=== PATIENT | male | born 1955 | race Caucasian/White ===

== ENCOUNTER 2017-10-09 08:33 | Emergency (ER) | payer MEDICARE, MEDICAID ==
[~2017-10-09] VITALS: Ht 172.7 cm; Wt 57.0 kg
[~2017-10-09 08:33] MED LIST: ALBU8.5H8 IH; ALBU8HFA PO; AZIT250T PO; EMOL78CR TOP; METH500T PO; NAPAOS PO; NO HOME MEDS
[2017-10-09] MEDS ORDERED: HYDROcodone/acetaminophen 10/325mg tab PO ONE (09:40)
[2017-10-09 09:44] VITALS: BP 102/56
[2017-10-09] MEDS ORDERED: HYDR-569 PO (10:01)
[2017-10-09] MEDS ORDERED: LIDOcaine 1.5% w/epinephrine 1:200,000 5ml ampul IJ ONE (10:05)
== END 2017-10-09 11:02 | disposition home or self-care (01) ==
LOC: ER 08:33
DX: S01.112A Laceration without foreign body of left eyelid and periocular area, initial encounter (principal); S40.012A Contusion of left shoulder, initial encounter; S09.90XA Unspecified injury of head, initial encounter; I25.10 Atherosclerotic heart disease of native coronary artery without angina pectoris; J44.9 Chronic obstructive pulmonary disease, unspecified; G89.29 Other chronic pain; F17.200 Nicotine dependence, unspecified, uncomplicated; Z59.0 Homelessness; Z79.899 Other long term (current) drug therapy; Z88.8 Allergy status to other drugs, medicaments and biological substances; W01.0XXA Fall on same level from slipping, tripping and stumbling without subsequent striking against object, initial encounter; Y93.89 Activity, other specified; Y92.89 Other specified places as the place of occurrence of the external cause; Y99.8 Other external cause status
CPT/HCPCS: 12011; 70450; 73030; 93005; 99284; J3490

== ENCOUNTER 2017-10-28 13:05 | Emergency (ER) | payer MEDICARE, MEDICAID ==
[~2017-10-28] VITALS: Ht 175.3 cm; Wt 54.0 kg
[~2017-10-28 13:05] MED LIST changes: +HYDR-569 PO
[2017-10-28 13:26] VITALS: BP 118/76
== END 2017-10-28 16:00 | disposition home or self-care (01) ==
LOC: ER 13:06
DX: S42.302A Unspecified fracture of shaft of humerus, left arm, initial encounter for closed fracture (principal); I25.10 Atherosclerotic heart disease of native coronary artery without angina pectoris; J44.9 Chronic obstructive pulmonary disease, unspecified; M19.90 Unspecified osteoarthritis, unspecified site; Z88.8 Allergy status to other drugs, medicaments and biological substances; Z60.2 Problems related to living alone; Z59.0 Homelessness; Z79.899 Other long term (current) drug therapy; W18.30XA Fall on same level, unspecified, initial encounter; Y93.89 Activity, other specified; Y92.89 Other specified places as the place of occurrence of the external cause; Y99.8 Other external cause status
CPT/HCPCS: 29105; 73080; 73120; 99284; A4565; A6449

== ENCOUNTER 2017-11-11 14:14 | Outpatient (CLI) | payer MEDICARE, MEDICAID ==
[2017-11-11 14:24] VITALS: BP 113/66
== END 2017-11-11 15:19 | disposition home or self-care (01) ==
LOC: ORTHO 14:14
PROVIDERS: ATTEND Nurse Practitioner Family
DX: S52.132A Displaced fracture of neck of left radius, initial encounter for closed fracture (principal); J43.9 Emphysema, unspecified; I25.10 Atherosclerotic heart disease of native coronary artery without angina pectoris; F32.9 Major depressive disorder, single episode, unspecified; F17.210 Nicotine dependence, cigarettes, uncomplicated; F20.9 Schizophrenia, unspecified; G89.29 Other chronic pain; Z88.8 Allergy status to other drugs, medicaments and biological substances; Z59.0 Homelessness; X58.XXXA Exposure to other specified factors, initial encounter; Y93.89 Activity, other specified; Y92.89 Other specified places as the place of occurrence of the external cause; Y99.8 Other external cause status
CPT/HCPCS: 73080; 99213

== ENCOUNTER 2017-11-24 09:40 | Outpatient (CLI) | payer MEDICARE, MEDICAID ==
[~2017-11-24] VITALS: Ht 175.3 cm; Wt 52.0 kg
[2017-11-24 09:42] VITALS: BP 111/74
[2017-11-24 09:53] VITALS: BP 111/74
== END 2017-11-24 10:34 | disposition home or self-care (01) ==
LOC: ORTHO 09:40
PROVIDERS: ATTEND Nurse Practitioner Family
DX: S52.135 Nondisplaced fracture of neck of left radius (principal); I25.2 Old myocardial infarction; J44.9 Chronic obstructive pulmonary disease, unspecified; M19.90 Unspecified osteoarthritis, unspecified site; F17.210 Nicotine dependence, cigarettes, uncomplicated; R73.03 Prediabetes; Z59.0 Homelessness; Z87.11 Personal history of peptic ulcer disease; X58.XXXD Exposure to other specified factors, subsequent encounter
CPT/HCPCS: 73080; 99215; A4565; A6449

== ENCOUNTER 2017-12-09 05:29 | Day surgery (SDC) | payer MEDICARE, MEDICAID ==
[2017-12-04 15:19] LABS: BASOPHILS # (AUTO) 0.1 X10'3 (0-0.2); BASOPHILS % (AUTO) 0.6 % (0-1); EOSINOPHILS # (AUTO) 0.2 X10'3 (0-0.9); EOSINOPHILS % (AUTO) 1.7 % (0-6); LYMPHOCYTES # (AUTO) 2.3 X10'3 (1.1-4.8); LYMPHOCYTES % (AUTO) 22.3 % (21-51); MEAN CORPUSCULAR HEMOGLOBIN 29.9 PG (27.0-31.0); MEAN CORPUSCULAR HGB CONC 33.4 % (33.0-36.5); MEAN CORPUSCULAR VOLUME 89.4 FL (78-98); MEAN PLATELET VOLUME 7.4 FL (7.4-10.4); MONOCYTES # (AUTO) 0.7 X10'3 (0-0.9); MONOCYTES % (AUTO) 6.5 % (2-12); NEUTROPHILS # (AUTO) 7.3 X10'3 (1.8-7.7); NEUTROPHILS % (AUTO) 68.9 % (42-75); PRE OP HEMATOCRIT 46.3 % (42.0-52.0); PRE OP HEMOGLOBIN 15.5 g/dL (14.0-17.9); PRE OP PLATELET COUNT 278 X10'3 (140-440); RED BLOOD COUNT 5.18 X10'6 (4.70-6.10); RED CELL DISTRIBUTION WIDTH 13.8 % (11.5-14.5)
[2017-12-04 15:37] LABS: ALBUMIN 3.9 G/DL (3.4-5.0); ALKALINE PHOSPHATASE 94 IU/L (46-116); BLOOD UREA NITROGEN 17 MG/DL (7-18); BUN/CREATININE RATIO 15.5 (5.4-32.0); CALCIUM 8.9 MG/DL (8.5-10.1); CHLORIDE 102 MMOL/L (99-107); PRE OP ALT 28 U/L (30-65); PRE OP ANION GAP 8 (8-16); PRE OP AST 24 U/L (10-37); PRE OP BILIRUB, TOTAL 1.6 MG/DL (0.0-1.0); PRE OP GLUCOSE 95 MG/DL (70-104); PRE OP POTASSIUM 3.8 MMOL/L (3.4-5.1); PRE OP SODIUM 140 MMOL/L (135-145); TOTAL CARBON DIOXIDE 29.7 MMOL/L (24-32); TOTAL PROTEIN 7.8 G/DL (6.4-8.2); eGFR 68 ML/MIN
[2017-12-09] VITALS (12 sets, daily range): BP systolic 101–119; BP diastolic 63–78
[~2017-12-09] VITALS: Ht 175.3 cm; Wt 53.0 kg
[~2017-12-09 05:29] MED LIST changes: -ALBU8.5H8 IH; -AZIT250T PO; -EMOL78CR TOP; -HYDR-569 PO; -METH500T PO; -NAPAOS PO; -NO HOME MEDS; +ringers solution, lacted 1,000 ML IV SCH
[2017-12-09] MEDS ORDERED: VANCOMYCIN INJ 1000 MG in NORMAL SALINE 250ml IV.SOLN IV ONE (05:30)
[2017-12-09] MEDS ORDERED: famotidine 20mg tablet PO ONE (05:30)
[2017-12-09] MEDS ORDERED: ceFAZolin inj. 2,000 MG in dextrose 5%-water 100 ML IV ONE (05:30)
[2017-12-09] MEDS ORDERED: albuterol 2.5 MG/3 ML nebule NEB ONE (05:30)
[2017-12-09] MEDS ORDERED: LIDOcaine 1% (10mg/ml) 2ml vial ONE (05:59)
[2017-12-09] MEDS ORDERED: ceFAZolin 1000mg inj ONE (06:51)
[2017-12-09] MEDS ORDERED: cloNIDine hcl/PF 100mcg/ml inj ONE (07:22)
[2017-12-09] MEDS ORDERED: sevoflurane 250ml liquid IH ONE (07:23)
[2017-12-09] MEDS ORDERED: ROPIVAcaine 0.5% (5mg/ml) 30ml vial ONE (07:24)
[2017-12-09] MEDS ORDERED: fentaNYL/PF 50MCG/1 ML 2ML syringe ONE ×2 (07:26→08:10)
[2017-12-09] MEDS ORDERED: MIDAZolam 5mg/5ml vial ONE (07:27)
[2017-12-09] MEDS ORDERED: propofol inj 20 ML IV ONE (08:12)
[2017-12-09] MEDS ORDERED: dexamethasone sod phosphate 4mg/ml inj. ONE (08:12)
[2017-12-09] MEDS ORDERED: LIDOcaine 1%/PF 5ML 10 MG/ML VIAL ONE (08:12)
[2017-12-09] MEDS ORDERED: ePHEDrine 50MG/ML INJ. ONE (08:31)
[2017-12-09] MEDS ORDERED: ringers solution, lacted 1,000 ML IV SCH (08:39)
[2017-12-09] MEDS ORDERED: morphine 4 MG/ML inj SYRINge IV PRN ×2 (08:40)
[2017-12-09] MEDS ORDERED: meperidine/PF 25mg/ml syringe IV PRN ×3 (08:40)
[2017-12-09] MEDS ORDERED: ondansetron/PF 4mg/2ml inj IV PRN (08:40)
[2017-12-09] MEDS ORDERED: ondansetron/PF 4mg/2ml inj ONE (09:00)
== END 2017-12-09 10:40 | disposition home or self-care (01) ==
LOC: PAS 05:29
PROVIDERS: ATTEND Orthopaedic Surgery
DX: S52.132A Displaced fracture of neck of left radius, initial encounter for closed fracture (principal); I25.2 Old myocardial infarction; J44.9 Chronic obstructive pulmonary disease, unspecified; J90 Pleural effusion, not elsewhere classified; I08.1 Rheumatic disorders of both mitral and tricuspid valves; F17.210 Nicotine dependence, cigarettes, uncomplicated; I25.10 Atherosclerotic heart disease of native coronary artery without angina pectoris; F32.89 Other specified depressive episodes; G89.29 Other chronic pain; Z91.048 Other nonmedicinal substance allergy status; Z86.74 Personal history of sudden cardiac arrest; Z90.89 Acquired absence of other organs; Z98.41 Cataract extraction status, right eye; Z98.42 Cataract extraction status, left eye; Z88.8 Allergy status to other drugs, medicaments and biological substances; Z98.890 Other specified postprocedural states; Z79.899 Other long term (current) drug therapy; X58.XXXA Exposure to other specified factors, initial encounter; Y93.89 Activity, other specified; Y92.89 Other specified places as the place of occurrence of the external cause; Y99.8 Other external cause status
CPT/HCPCS: 24666; 36415; 71046; 80053; 82948; 85025; 93306; 94640; 94760; A4565; A6449; C1713; J0690; J0735; J1100; J2001; J2250; J2405; J2704; J2795; J3010; J3370; J3490; J7060; J7120; A7000

== ENCOUNTER 2017-12-21 22:20 | Emergency (ER) | payer MEDICARE, MEDICAID ==
[~2017-12-21] VITALS: Ht 152.4 cm; Wt 40.2 kg
[~2017-12-21 22:20] MED LIST changes: -ringers solution, lacted 1,000 ML IV SCH
[2017-12-21 22:31] VITALS: BP 92/74
== END 2017-12-21 23:40 | disposition home or self-care (01) ==
LOC: ER 22:21
DX: S51.802D Unspecified open wound of left forearm, subsequent encounter (principal); I25.2 Old myocardial infarction; J44.9 Chronic obstructive pulmonary disease, unspecified; E11.9 Type 2 diabetes mellitus without complications; M19.90 Unspecified osteoarthritis, unspecified site; Z86.14 Personal history of Methicillin resistant Staphylococcus aureus infection; Z90.89 Acquired absence of other organs; Z60.2 Problems related to living alone; Z59.0 Homelessness; Z88.8 Allergy status to other drugs, medicaments and biological substances; Z79.899 Other long term (current) drug therapy; X58.XXXA Exposure to other specified factors, initial encounter
CPT/HCPCS: 99284

== ENCOUNTER 2017-12-22 14:26 | Outpatient (CLI) | payer MEDICARE, MEDICAID | END 2017-12-22 15:07 | disposition home or self-care (01) | LOC: ORTHO 14:26 | PROVIDERS: ATTEND Nurse Practitioner Family | DX: S52.135D Nondisplaced fracture of neck of left radius, subsequent encounter for closed fracture with routine healing (principal); I25.10 Atherosclerotic heart disease of native coronary artery without angina pectoris; J43.9 Emphysema, unspecified; F32.9 Major depressive disorder, single episode, unspecified; Z88.8 Allergy status to other drugs, medicaments and biological substances; X58.XXXD Exposure to other specified factors, subsequent encounter | CPT/HCPCS: 73070; 99214; A6449 ==

== ENCOUNTER 2018-01-18 05:15 | Emergency (ER) | payer MEDICARE, MEDICAID ==
[~2018-01-18] VITALS: Ht 175.3 cm; Wt 52.0 kg
[2018-01-18 05:59] VITALS: BP 123/72
[2018-01-18] MEDS ORDERED: HYDR-3965 PO (06:33)
== END 2018-01-18 06:42 | disposition home or self-care (01) ==
LOC: ER 05:16
DX: G89.18 Other acute postprocedural pain (principal); M25.522 Pain in left elbow; I25.2 Old myocardial infarction; J44.9 Chronic obstructive pulmonary disease, unspecified; E11.9 Type 2 diabetes mellitus without complications; F31.9 Bipolar disorder, unspecified; F17.210 Nicotine dependence, cigarettes, uncomplicated; Z98.890 Other specified postprocedural states; Z90.89 Acquired absence of other organs; Z60.2 Problems related to living alone; Z59.0 Homelessness; Z56.0 Unemployment, unspecified; Z88.8 Allergy status to other drugs, medicaments and biological substances; Z79.899 Other long term (current) drug therapy
CPT/HCPCS: 99283

== ENCOUNTER 2019-04-21 21:40 | Emergency (ER) | payer MEDICARE, MEDICAID ==
[~2019-04-21] VITALS: Ht 175.3 cm; Wt 47.7 kg
[~2019-04-21 21:40] MED LIST changes: +ARTANE; +GEODON
[2019-04-21 21:43] VITALS: BP 128/77
[2019-04-21] MEDS ORDERED: DIPH25CA83 PO (22:16)
[2019-04-21] MEDS ORDERED: CEPH250T PO (22:16)
[2019-04-21] MEDS ORDERED: cephalexin 250mg capsule PO ONE (22:20)
[2019-04-21] MEDS ORDERED: diphenhydrAMINE 25mg capsule PO ONE (22:20)
== END 2019-04-21 22:29 | disposition home or self-care (01) ==
LOC: ER 21:41
DX: L03.114 Cellulitis of left upper limb (principal); L03.113 Cellulitis of right upper limb; I25.2 Old myocardial infarction; J44.9 Chronic obstructive pulmonary disease, unspecified; E11.9 Type 2 diabetes mellitus without complications; M19.90 Unspecified osteoarthritis, unspecified site; F31.9 Bipolar disorder, unspecified; Z98.890 Other specified postprocedural states; Z86.14 Personal history of Methicillin resistant Staphylococcus aureus infection; Z87.11 Personal history of peptic ulcer disease; Z56.0 Unemployment, unspecified; Z59.0 Homelessness; Z88.8 Allergy status to other drugs, medicaments and biological substances; Z79.2 Long term (current) use of antibiotics; Z79.899 Other long term (current) drug therapy
CPT/HCPCS: 99284; Q0163

== ENCOUNTER 2019-07-27 17:21 | Emergency (ER) | payer MEDICARE, MEDICAID ==
[~2019-07-27] VITALS: Ht 175.3 cm; Wt 51.5 kg
[~2019-07-27 17:21] MED LIST changes: +DIPH25CA83 PO
[2019-07-27 19:21] VITALS: BP 121/83
== END 2019-07-27 19:22 | disposition home or self-care (01) ==
LOC: ER 17:22
DX: S00.01XA Abrasion of scalp, initial encounter (principal); I25.2 Old myocardial infarction; J44.9 Chronic obstructive pulmonary disease, unspecified; E11.9 Type 2 diabetes mellitus without complications; M19.90 Unspecified osteoarthritis, unspecified site; F31.9 Bipolar disorder, unspecified; Z86.14 Personal history of Methicillin resistant Staphylococcus aureus infection; Z59.0 Homelessness; Z98.890 Other specified postprocedural states; Z90.89 Acquired absence of other organs; Z60.2 Problems related to living alone; Z56.0 Unemployment, unspecified; Z91.09 Other allergy status, other than to drugs and biological substances; Z88.8 Allergy status to other drugs, medicaments and biological substances; Z79.899 Other long term (current) drug therapy; Y04.8XXA Assault by other bodily force, initial encounter; Y93.89 Activity, other specified; Y92.89 Other specified places as the place of occurrence of the external cause; Y99.8 Other external cause status
CPT/HCPCS: 99281

== ENCOUNTER 2019-09-28 18:42 | Emergency (ER) | payer MEDICARE, MEDICAID ==
[~2019-09-28] VITALS: Ht 175.3 cm; Wt 52.3 kg
[2019-09-28 18:45] VITALS: BP 138/82
[2019-09-28] MEDS ORDERED: ALBU6.7H9 INH (19:19)
[2019-09-28] MEDS ORDERED: AZIT250T2 PO (19:19)
== END 2019-09-28 21:21 | disposition home or self-care (01) ==
LOC: ER 18:43
DX: J20.9 Acute bronchitis, unspecified (principal); I25.2 Old myocardial infarction; J43.9 Emphysema, unspecified; E11.9 Type 2 diabetes mellitus without complications; F31.9 Bipolar disorder, unspecified; F20.9 Schizophrenia, unspecified; Z56.0 Unemployment, unspecified; Z86.14 Personal history of Methicillin resistant Staphylococcus aureus infection; Z88.8 Allergy status to other drugs, medicaments and biological substances; Z59.0 Homelessness; Z87.891 Personal history of nicotine dependence; Z79.899 Other long term (current) drug therapy
CPT/HCPCS: 71045; 99283

== ENCOUNTER 2020-06-18 10:52 | Emergency (ER) | payer MEDICARE, MEDICAID ==
[~2020-06-18] VITALS: Ht 167.6 cm; Wt 6.4 kg
[~2020-06-18 10:52] MED LIST changes: +ALBU6.7H9 INH
[2020-06-18] MEDS ORDERED: Permethrin Cream 60gm TP ONE (11:40)
== END 2020-06-18 12:41 | disposition home or self-care (01) ==
LOC: ER 10:53
DX: B86 Scabies (principal); I21.9 Acute myocardial infarction, unspecified; J43.9 Emphysema, unspecified; E11.9 Type 2 diabetes mellitus without complications; Z87.81 Personal history of (healed) traumatic fracture; F31.9 Bipolar disorder, unspecified; Z56.0 Unemployment, unspecified; Z59.0 Homelessness; Z88.8 Allergy status to other drugs, medicaments and biological substances; Z79.899 Other long term (current) drug therapy
CPT/HCPCS: 99282; 99283

== ENCOUNTER 2020-06-29 08:28 | Emergency (ER) | payer MEDICARE, MEDICAID ==
[~2020-06-29] VITALS: Ht 167.6 cm; Wt 63.0 kg
[2020-06-29] MEDS ORDERED: HYDR-3686 PO (09:25)
[2020-06-29] MEDS ORDERED: CAMP85GE TP (09:25)
[2020-06-29] MEDS ORDERED: CEPH250T PO (09:25)
== END 2020-06-29 09:43 | disposition home or self-care (01) ==
LOC: ER 08:29
DX: L03.119 Cellulitis of unspecified part of limb (principal); B86 Scabies; L29.9 Pruritus, unspecified; I25.2 Old myocardial infarction; J43.9 Emphysema, unspecified; E11.9 Type 2 diabetes mellitus without complications; M19.90 Unspecified osteoarthritis, unspecified site; F31.9 Bipolar disorder, unspecified; F20.9 Schizophrenia, unspecified; Z87.11 Personal history of peptic ulcer disease; Z86.14 Personal history of Methicillin resistant Staphylococcus aureus infection; Z90.89 Acquired absence of other organs; Z98.890 Other specified postprocedural states; Z60.2 Problems related to living alone; Z56.0 Unemployment, unspecified; Z59.0 Homelessness; Z88.8 Allergy status to other drugs, medicaments and biological substances; Z79.2 Long term (current) use of antibiotics; Z79.899 Other long term (current) drug therapy
CPT/HCPCS: 99283

== ENCOUNTER 2020-07-04 11:21 | Emergency (ER) | payer MEDICARE, MEDICAID ==
[~2020-07-04] VITALS: Ht 175.3 cm; Wt 54.5 kg
[~2020-07-04 11:21] MED LIST changes: +CAMP85GE TP; +CEPH250T PO; +HYDR-3686 PO
[2020-07-04 11:28] VITALS: BP 112/55
[2020-07-04] MEDS ORDERED: DIPH25CA83 PO (11:38)
[2020-07-04] MEDS ORDERED: PERM60CR19 TP (11:38)
[2020-07-04] MEDS ORDERED: CEPH250T PO (11:38)
[2020-07-04] MEDS: diphenhydrAMINE 25 MG/10 ML UD oral solution PO ONE (11:54)
== END 2020-07-04 12:03 | disposition home or self-care (01) ==
LOC: ER 11:24
DX: B86 Scabies (principal); L03.115 Cellulitis of right lower limb; I25.2 Old myocardial infarction; J44.9 Chronic obstructive pulmonary disease, unspecified; E11.9 Type 2 diabetes mellitus without complications; M19.90 Unspecified osteoarthritis, unspecified site; Z86.14 Personal history of Methicillin resistant Staphylococcus aureus infection; F31.9 Bipolar disorder, unspecified; F20.9 Schizophrenia, unspecified; F17.200 Nicotine dependence, unspecified, uncomplicated; Z90.89 Acquired absence of other organs; Z98.890 Other specified postprocedural states; Z60.2 Problems related to living alone; Z59.0 Homelessness; Z56.0 Unemployment, unspecified; Z91.048 Other nonmedicinal substance allergy status; Z88.8 Allergy status to other drugs, medicaments and biological substances; Z79.899 Other long term (current) drug therapy
CPT/HCPCS: 99283; Q0163

== ENCOUNTER 2020-08-02 11:44 | Emergency (ER) | payer MEDICARE, MEDICAID ==
[~2020-08-02] VITALS: Ht 180.3 cm; Wt 54.5 kg
[~2020-08-02 11:44] MED LIST changes: -CEPH250T PO; -HYDR-3686 PO; +PERM60CR19 TP
[2020-08-02] MEDS ORDERED: mupirocin 2% cream 15gm TP STA (12:03)
[2020-08-02] MEDS ORDERED: DOXYCYCLINE 100MG CAPSULE PO STA (12:03)
[2020-08-02] MEDS ORDERED: mupirocin 2% ointment 22GM TP STA (12:08)
[2020-08-02] MEDS ORDERED: MUPI22OI30 TOP (12:20)
[2020-08-02] MEDS ORDERED: DOXY100C2 PO (12:20)
== END 2020-08-02 12:27 | disposition home or self-care (01) ==
LOC: ER 11:45
DX: B86 Scabies (principal); I25.2 Old myocardial infarction; J43.9 Emphysema, unspecified; E11.9 Type 2 diabetes mellitus without complications; M19.90 Unspecified osteoarthritis, unspecified site; F31.9 Bipolar disorder, unspecified; Z86.14 Personal history of Methicillin resistant Staphylococcus aureus infection; Z90.89 Acquired absence of other organs; Z98.890 Other specified postprocedural states; Z60.2 Problems related to living alone; Z59.0 Homelessness; Z56.0 Unemployment, unspecified; Z88.8 Allergy status to other drugs, medicaments and biological substances; Z79.2 Long term (current) use of antibiotics; Z79.899 Other long term (current) drug therapy
CPT/HCPCS: 99283

== ENCOUNTER 2020-08-21 20:22 | Emergency (ER) | payer MEDICARE, MEDICAID ==
[~2020-08-21] VITALS: Ht 175.3 cm; Wt 54.6 kg
[~2020-08-21 20:22] MED LIST changes: +MUPI22OI30 TOP; -PERM60CR19 TP
[2020-08-21] MEDS ORDERED: HYDR28CR14 TOP (22:47)
[2020-08-21 22:56] VITALS: BP 131/76
== END 2020-08-21 22:58 | disposition home or self-care (01) ==
LOC: ER 20:23
DX: L29.8 Other pruritus (principal); M75.91 Shoulder lesion, unspecified, right shoulder; I25.2 Old myocardial infarction; J43.9 Emphysema, unspecified; E11.9 Type 2 diabetes mellitus without complications; M19.90 Unspecified osteoarthritis, unspecified site; F31.9 Bipolar disorder, unspecified; F20.9 Schizophrenia, unspecified; Z87.11 Personal history of peptic ulcer disease; Z86.14 Personal history of Methicillin resistant Staphylococcus aureus infection; Z90.89 Acquired absence of other organs; Z98.890 Other specified postprocedural states; Z60.2 Problems related to living alone; Z59.0 Homelessness; Z56.0 Unemployment, unspecified; Z88.8 Allergy status to other drugs, medicaments and biological substances; Z79.899 Other long term (current) drug therapy
CPT/HCPCS: 99283

== ENCOUNTER 2020-09-01 08:28 | Emergency (ER) | payer MEDICARE, MEDICAID ==
[~2020-09-01] VITALS: Ht 175.3 cm; Wt 53.0 kg
[~2020-09-01 08:28] MED LIST changes: +HYDR28CR14 TOP
[2020-09-01 08:34] VITALS: BP 115/75
[2020-09-01] MEDS ORDERED: MUPI22OI30 TOP (09:37)
[2020-09-01] MEDS ORDERED: DIPH25CA83 PO (09:37)
== END 2020-09-01 09:44 | disposition home or self-care (01) ==
LOC: ER 08:28
DX: R21 Rash and other nonspecific skin eruption (principal); L29.9 Pruritus, unspecified; I25.2 Old myocardial infarction; E11.9 Type 2 diabetes mellitus without complications; M19.90 Unspecified osteoarthritis, unspecified site; Z87.11 Personal history of peptic ulcer disease; Z56.0 Unemployment, unspecified; Z59.0 Homelessness; Z79.2 Long term (current) use of antibiotics; Z79.899 Other long term (current) drug therapy; Z88.8 Allergy status to other drugs, medicaments and biological substances; Z91.048 Other nonmedicinal substance allergy status; Z86.14 Personal history of Methicillin resistant Staphylococcus aureus infection
CPT/HCPCS: 99283

== ENCOUNTER 2020-09-13 18:43 | Emergency (ER) | payer MEDICARE, MEDICAID ==
[~2020-09-13] VITALS: Ht 175.3 cm; Wt 54.5 kg
[~2020-09-13 18:43] MED LIST changes: -MUPI22OI30 TOP
[2020-09-13 18:47] VITALS: BP 120/68
--- NOTE | 2020-09-13 19:03 | NUR ---
I collected a bug. I put it in a cup. made aware. EVS placing sticky pads.
[2020-09-13] MEDS ORDERED: DIPH25CA83 PO (19:45)
[2020-09-13] MEDS ORDERED: LORazepam 1 MG tablet PO ONE (19:45)
[2020-09-13] MEDS ORDERED: MUPI22OI30 TOP (19:45)
[2020-09-13] MEDS ORDERED: PERM60CR19 TP (19:45)
--- NOTE | 2020-09-13 19:50 | NUR ---
Gave him his medication. He is standing in the room completely naked and scratching and freaking out.
[2020-09-13] MEDS ORDERED: Permethrin Cream 60gm TP ONE (20:00)
== END 2020-09-13 20:16 | disposition home or self-care (01) ==
LOC: ER 18:44
DX: B85.1 Pediculosis due to Pediculus humanus corporis (principal); B88.9 Infestation, unspecified; I25.2 Old myocardial infarction; J43.9 Emphysema, unspecified; E11.9 Type 2 diabetes mellitus without complications; M19.90 Unspecified osteoarthritis, unspecified site; F31.9 Bipolar disorder, unspecified; F20.9 Schizophrenia, unspecified; Z87.11 Personal history of peptic ulcer disease; Z86.14 Personal history of Methicillin resistant Staphylococcus aureus infection; Z90.89 Acquired absence of other organs; Z98.890 Other specified postprocedural states; Z60.2 Problems related to living alone; Z56.0 Unemployment, unspecified; Z59.0 Homelessness; Z88.8 Allergy status to other drugs, medicaments and biological substances; Z79.899 Other long term (current) drug therapy
CPT/HCPCS: 99283

== ENCOUNTER 2020-11-06 09:26 | Emergency (ER) | payer MEDICARE, MEDICAID ==
[~2020-11-06] VITALS: Ht 175.3 cm; Wt 51.7 kg
[2020-11-06 09:42] VITALS: BP 103/62
[2020-11-06] MEDS ORDERED: mupirocin 2% ointment 22GM TP ONE (10:35)
[2020-11-06] MEDS ORDERED: LIDOcaine/PRILOcaine 5gm cream TP ONE (10:35)
[2020-11-06] MEDS ORDERED: diphenhydrAMINE 25mg capsule PO ONE (10:35)
[2020-11-06] MEDS ORDERED: BACI3.5O2 LEFTEYE (10:43)
[2020-11-06] MEDS ORDERED: HYDR-3686 PO (10:43)
[2020-11-06] MEDS ORDERED: CEPH250T PO (10:43)
== END 2020-11-06 11:10 | disposition home or self-care (01) ==
LOC: ER 09:26
DX: S41.102A Unspecified open wound of left upper arm, initial encounter (principal); S41.101A Unspecified open wound of right upper arm, initial encounter; L29.9 Pruritus, unspecified; I25.2 Old myocardial infarction; E11.9 Type 2 diabetes mellitus without complications; M19.90 Unspecified osteoarthritis, unspecified site; Z87.11 Personal history of peptic ulcer disease; Z86.14 Personal history of Methicillin resistant Staphylococcus aureus infection; Z87.81 Personal history of (healed) traumatic fracture; Z98.890 Other specified postprocedural states; Z56.0 Unemployment, unspecified; Z59.0 Homelessness; Z88.8 Allergy status to other drugs, medicaments and biological substances; Z91.048 Other nonmedicinal substance allergy status; Z79.2 Long term (current) use of antibiotics; Z79.899 Other long term (current) drug therapy; J43.9 Emphysema, unspecified; X58.XXXA Exposure to other specified factors, initial encounter; Y93.89 Activity, other specified; Y92.89 Other specified places as the place of occurrence of the external cause; Y99.8 Other external cause status
CPT/HCPCS: 99283; Q0163

== ENCOUNTER 2020-12-04 11:28 | Emergency (ER) | payer MEDICARE, MEDICAID ==
[~2020-12-04] VITALS: Ht 175.3 cm; Wt 54.5 kg
[~2020-12-04 11:28] MED LIST changes: +BACI3.5O2 LEFTEYE; +HYDR-3686 PO
[2020-12-04 11:35] VITALS: BP 97/64
[2020-12-04] MEDS ORDERED: mupirocin 2% ointment 22GM TP STA (11:49)
[2020-12-04] MEDS ORDERED: HYDROcodone/acetaminophen 5mg/325mg tablet PO ONE (11:50)
[2020-12-04] MEDS ORDERED: MUPI22OI30 TOP (11:51)
[2020-12-04] MEDS ORDERED: NAPR-56 PO (11:51)
[2020-12-04] MEDS ORDERED: SULF1TAB49 PO (11:51)
--- NOTE | 2020-12-04 12:27 | NUR ---
APPLY ABX OINTMENT TO WOUNDS ON RIGHT ARM. APPLY NONADHERANT DRESSING AND SECURE WITH COBAN.
== END 2020-12-04 12:42 | disposition home or self-care (01) ==
LOC: ER 11:28
DX: S41.101A Unspecified open wound of right upper arm, initial encounter (principal); I25.2 Old myocardial infarction; E11.9 Type 2 diabetes mellitus without complications; J43.9 Emphysema, unspecified; M19.90 Unspecified osteoarthritis, unspecified site; Z86.14 Personal history of Methicillin resistant Staphylococcus aureus infection; Z87.81 Personal history of (healed) traumatic fracture; Z56.0 Unemployment, unspecified; Z59.0 Homelessness; Z88.8 Allergy status to other drugs, medicaments and biological substances; Z91.048 Other nonmedicinal substance allergy status; Z79.899 Other long term (current) drug therapy; X58.XXXA Exposure to other specified factors, initial encounter; Y93.89 Activity, other specified; Y92.89 Other specified places as the place of occurrence of the external cause; Y99.8 Other external cause status
CPT/HCPCS: 99283

== ENCOUNTER 2020-12-12 12:13 | Emergency (ER) | payer MEDICARE, MEDICAID ==
[~2020-12-12] VITALS: Ht 175.3 cm; Wt 54.5 kg
[~2020-12-12 12:13] MED LIST changes: -HYDR-3686 PO; +MUPI22OI30 TOP; +NAPR-56 PO; +SULF1TAB49 PO
[2020-12-12 12:30] VITALS: BP 97/67
[2020-12-12] MEDS ORDERED: mupirocin 2% ointment 22GM TP STA (13:37)
[2020-12-12] MEDS ORDERED: MUPI22OI30 TOP (13:38)
== END 2020-12-12 13:53 | disposition home or self-care (01) ==
LOC: ER 12:14
DX: R21 Rash and other nonspecific skin eruption (principal); I25.2 Old myocardial infarction; J43.9 Emphysema, unspecified; E11.9 Type 2 diabetes mellitus without complications; M19.90 Unspecified osteoarthritis, unspecified site; F31.9 Bipolar disorder, unspecified; F20.9 Schizophrenia, unspecified; Z76.0 Encounter for issue of repeat prescription; Z86.14 Personal history of Methicillin resistant Staphylococcus aureus infection; Z87.11 Personal history of peptic ulcer disease; Z90.89 Acquired absence of other organs; Z60.2 Problems related to living alone; Z56.0 Unemployment, unspecified; Z59.0 Homelessness; Z88.8 Allergy status to other drugs, medicaments and biological substances; Z79.2 Long term (current) use of antibiotics; Z79.899 Other long term (current) drug therapy
CPT/HCPCS: 99283

== ENCOUNTER 2021-06-26 00:33 | Emergency (ER) | payer MEDICARE, MEDICAID ==
[~2021-06-26] VITALS: Ht 170.2 cm; Wt 65.9 kg
[~2021-06-26 00:33] MED LIST changes: -MUPI22OI30 TOP; -NAPR-56 PO; -SULF1TAB49 PO
--- NOTE | 2021-06-26 01:00 | NUR ---
Pt. reports during triage he called 911 because [facility] lo[facility] money at [facility]
[2021-06-26] MEDS ORDERED: AZIT-83 PO (01:41)
[2021-06-26 02:18] VITALS: BP 126/70
== END 2021-06-26 02:31 | disposition home or self-care (01) ==
LOC: ER 00:33
DX: R05.9 Cough, unspecified (principal); I25.2 Old myocardial infarction; J43.9 Emphysema, unspecified; E11.9 Type 2 diabetes mellitus without complications; M19.90 Unspecified osteoarthritis, unspecified site; F31.9 Bipolar disorder, unspecified; F20.9 Schizophrenia, unspecified; Z87.11 Personal history of peptic ulcer disease; Z86.14 Personal history of Methicillin resistant Staphylococcus aureus infection; Z90.89 Acquired absence of other organs; Z98.890 Other specified postprocedural states; Z60.2 Problems related to living alone; Z59.00 Homelessness unspecified; Z56.0 Unemployment, unspecified; Z88.8 Allergy status to other drugs, medicaments and biological substances; Z79.899 Other long term (current) drug therapy
CPT/HCPCS: 71045; 99283

== ENCOUNTER 2021-07-15 07:26 | Emergency (ER) | payer MEDICARE, MEDICAID ==
[~2021-07-15] VITALS: Ht 175.3 cm; Wt 51.5 kg
[~2021-07-15 07:26] MED LIST changes: +AZIT-83 PO
[2021-07-15 07:50] VITALS: BP 104/71
== END 2021-07-15 10:17 | disposition left against medical advice (07) ==
LOC: ER 07:26
DX: M54.50 Low back pain, unspecified (principal); Z53.21 Procedure and treatment not carried out due to patient leaving prior to being seen by health care provider

== ENCOUNTER 2021-07-25 04:07 | Emergency (ER) | payer MEDICARE, MEDICAID ==
[~2021-07-25] VITALS: Ht 175.3 cm; Wt 48.5 kg
[~2021-07-25 04:07] MED LIST changes: -AZIT-83 PO
[2021-07-25 07:11] LABS: BASOPHILS # (AUTO) 0.1 X10'3 (0-0.2); BASOPHILS % (AUTO) 0.4 % (0-1); EOSINOPHILS # (AUTO) 0.1 X10'3 (0-0.9); EOSINOPHILS % (AUTO) 0.2 % (0-6); HEMATOCRIT 41.2 % (42.0-52.0); LYMPHOCYTES # (AUTO) 1.9 X10'3 (1.1-4.8); LYMPHOCYTES % (AUTO) 8.9 % (21-51); MEAN CORPUSCULAR HEMOGLOBIN 30.3 PG (27.0-31.0); MEAN CORPUSCULAR HGB CONC 33.9 g/dL (33.0-36.5); MEAN CORPUSCULAR VOLUME 89.4 FL (78-98); MEAN PLATELET VOLUME 7.4 FL (7.4-10.4); MONOCYTES # (AUTO) 1.1 X10'3 (0-0.9); MONOCYTES % (AUTO) 5.4 % (2-12); NEUTROPHILS # (AUTO) 17.8 X10'3 (1.8-7.7); NEUTROPHILS % (AUTO) 85.1 % (42-75); PLATELET COUNT 317 X10'3 (140-440); RED BLOOD COUNT 4.61 X10'6 (4.70-6.10); RED CELL DISTRIBUTION WIDTH 14.3 % (11.5-14.5)
[2021-07-25 07:24] LABS: ALANINE AMINOTRANSFERASE 30 U/L (12-78); ALBUMIN 3.2 G/DL (3.4-5.0); ALBUMIN/GLOBULIN RATIO 0.8 (1.1-1.5); ALKALINE PHOSPHATASE 84 IU/L (46-116); ANION GAP 8 (8-16); ASPARTATE AMINO TRANSFERASE 17 U/L (10-37); BILIRUBIN,TOTAL 0.7 MG/DL (0.1-1.0); BLOOD UREA NITROGEN 23 MG/DL (7-18); BUN/CREATININE RATIO 22.5 (5.4-32.0); CALCIUM 8.2 MG/DL (8.5-10.1); CHLORIDE 106 MMOL/L (99-107); CREATININE 1.02 MG/DL (0.60-1.10); GLUCOSE 79 MG/DL (70-104); POTASSIUM 3.8 MMOL/L (3.5-5.1); SODIUM 140 MMOL/L (135-145); TOTAL CARBON DIOXIDE 26.5 MMOL/L (24-32); TOTAL PROTEIN 7.1 G/DL (6.4-8.2); eGFR 73 ML/MIN
[2021-07-25] MEDS ORDERED: iohexol 300mg/ml 100ml inj. ONE (07:46)
--- NOTE | 2021-07-25 08:13 | NUR ---
Pt is back in his room. C/O mid abd pain. He asked if he can have orange juice. I reminded him that he is NPO.
[2021-07-25 08:14] VITALS: BP 93/51
[2021-07-25 08:50] LABS: CLARITY,URINE CLOUDY (Clear); COLOR,URINE YELLOW (Yellow); GLUCOSE, URINE NEGATIVE (Neg); KETONES,URINE NEGATIVE (Neg); LEUKOCYTE ESTERASE ,URINE NEGATIVE (Neg); NITRITES, URINE NEGATIVE (Neg); OCCULT BLOOD,URINE TRACE-INTACT (Neg); PROTEIN,URINE 30 mg/dl (Neg); UROBILINOGEN,URINE 0.2 E.U/dL (0.2-1.0)
[2021-07-25 08:57] LABS: UA COLLECTION TYPE NON-SPECIFIED
[2021-07-25 08:58] LABS: MUCUS STRANDS FEW /LPF (Neg); SQUAMOUS EPITHELIAL CELL,UR FEW /LPF (FEW)
[2021-07-25 08:59] LABS: BACTERIA,URINE 1+ /HPF (Neg); RBC,URINE 0-2 /HPF (0-2); WBC,URINE 0-4 /HPF (0-4)
[2021-07-25] MEDS ORDERED: CIPR-259 PO (14:09)
[2021-07-25] MEDS ORDERED: METR-159 PO (14:09)
== END 2021-07-25 14:45 | disposition home or self-care (01) ==
LOC: ER 04:07
DX: K52.9 Noninfective gastroenteritis and colitis, unspecified (principal); Z20.822 Contact with and (suspected) exposure to COVID-19; I25.2 Old myocardial infarction; J43.9 Emphysema, unspecified; E11.9 Type 2 diabetes mellitus without complications; M19.90 Unspecified osteoarthritis, unspecified site; F17.200 Nicotine dependence, unspecified, uncomplicated; Z86.14 Personal history of Methicillin resistant Staphylococcus aureus infection; Z87.81 Personal history of (healed) traumatic fracture; Z87.11 Personal history of peptic ulcer disease; Z86.19 Personal history of other infectious and parasitic diseases; Z56.0 Unemployment, unspecified; Z59.00 Homelessness unspecified; Z88.8 Allergy status to other drugs, medicaments and biological substances; Z79.2 Long term (current) use of antibiotics; Z79.899 Other long term (current) drug therapy
CPT/HCPCS: 36415; 71045; 74177; 80053; 81001; 83605; 84484; 85025; 87635; 93005; 99285; C9803; Q9967

== ENCOUNTER 2022-02-13 10:33 | Emergency (ER) | payer MEDICARE, MEDICAID ==
[~2022-02-13] VITALS: Ht 175.3 cm; Wt 54.5 kg
[2022-02-13] MEDS ORDERED: predniSONE 20 mg tablet PO ONE (11:55)
[2022-02-13] MEDS ORDERED: ipratropium/albuterol 3ml nebule NEB ONE (11:55)
[2022-02-13] MEDS ORDERED: PRED20TA PO (11:59)
[2022-02-13] MEDS ORDERED: ALBU6.7H9 INH (11:59)
[2022-02-13 12:15] VITALS: BP 120/76
== END 2022-02-13 12:18 | disposition home or self-care (01) ==
LOC: ER 10:34
DX: T59.811A Toxic effect of smoke, accidental (unintentional), initial encounter (principal); J44.1 Chronic obstructive pulmonary disease with (acute) exacerbation; E11.9 Type 2 diabetes mellitus without complications; M19.90 Unspecified osteoarthritis, unspecified site; F31.9 Bipolar disorder, unspecified; Z88.8 Allergy status to other drugs, medicaments and biological substances; Z91.09 Other allergy status, other than to drugs and biological substances; Z59.00 Homelessness unspecified; Z56.0 Unemployment, unspecified; Y92.89 Other specified places as the place of occurrence of the external cause
CPT/HCPCS: 71045; 94640; 99283; J7512; 94760

== ENCOUNTER 2022-06-12 12:51 | Emergency (ER) | payer MEDICARE, MEDICAID ==
[~2022-06-12] VITALS: Ht 175.3 cm; Wt 54.5 kg
[~2022-06-12 12:51] MED LIST changes: +ALBU6.7H14 INH; -ALBU6.7H9 INH
[2022-06-12 12:57] VITALS: BP 114/55
[2022-06-12] MEDS ORDERED: ibuprofen 200mg tablet PO ONE (14:55)
[2022-06-12] MEDS ORDERED: IBUP-1985 PO (14:56)
== END 2022-06-12 15:30 | disposition home or self-care (01) ==
LOC: ER 12:52
DX: R51.9 Headache, unspecified (principal); J44.9 Chronic obstructive pulmonary disease, unspecified; F31.9 Bipolar disorder, unspecified; F20.9 Schizophrenia, unspecified; J34.9 Unspecified disorder of nose and nasal sinuses; Z79.899 Other long term (current) drug therapy; Z59.00 Homelessness unspecified; Z56.0 Unemployment, unspecified
CPT/HCPCS: 99282

== ENCOUNTER 2022-08-12 17:57 | Emergency (ER) | payer MEDICARE, MEDICAID ==
[~2022-08-12] VITALS: Ht 175.3 cm; Wt 65.0 kg
[~2022-08-12 17:57] MED LIST changes: +IBUP-1985 PO
[2022-08-12 18:30] VITALS: BP 143/72
[2022-08-12] MEDS ORDERED: bacitracin 15gm ointment TP ONE (20:20)
[2022-08-12] MEDS ORDERED: DOCU100C40 PO (21:15)
[2022-08-12] MEDS ORDERED: AZIT-31 PO (21:15)
--- NOTE | 2022-08-12 21:27 | NUR ---
[facility] CALLED AND CAN TAKE PT. [facility] CALLED
== END 2022-08-12 21:34 | disposition home or self-care (01) ==
LOC: ER 17:58
DX: S20.411A Abrasion of right back wall of thorax, initial encounter (principal); S00.01XA Abrasion of scalp, initial encounter; J20.9 Acute bronchitis, unspecified; J44.9 Chronic obstructive pulmonary disease, unspecified; F17.210 Nicotine dependence, cigarettes, uncomplicated; I25.2 Old myocardial infarction; E11.9 Type 2 diabetes mellitus without complications; M19.90 Unspecified osteoarthritis, unspecified site; F31.9 Bipolar disorder, unspecified; Z86.73 Personal history of transient ischemic attack (TIA), and cerebral infarction without residual deficits; Z90.89 Acquired absence of other organs; Z60.2 Problems related to living alone; Z59.00 Homelessness unspecified; Z56.0 Unemployment, unspecified; Z91.048 Other nonmedicinal substance allergy status; Z88.8 Allergy status to other drugs, medicaments and biological substances; Z79.899 Other long term (current) drug therapy; X58.XXXA Exposure to other specified factors, initial encounter; Y93.89 Activity, other specified; Y92.89 Other specified places as the place of occurrence of the external cause; Y99.8 Other external cause status
CPT/HCPCS: 71045; 99283

== ENCOUNTER 2022-08-22 13:47 | Emergency (ER) | payer MEDICARE, MEDICAID ==
[~2022-08-22] VITALS: Ht 175.3 cm; Wt 54.5 kg
[~2022-08-22 13:47] MED LIST changes: +DOCU100C40 PO
[2022-08-22 13:53] VITALS: BP 127/88
[2022-08-22] MEDS ORDERED: MELO-102 PO (16:10)
--- NOTE | 2022-08-22 16:27 | NUR ---
Spoke to Harman at the [facility]. The patient is able to come there tonight. [facility] called for transport.
== END 2022-08-22 16:28 | disposition home or self-care (01) ==
LOC: ER 13:48
DX: M25.562 Pain in left knee (principal); M25.561 Pain in right knee; J44.9 Chronic obstructive pulmonary disease, unspecified; F31.9 Bipolar disorder, unspecified; F20.9 Schizophrenia, unspecified; I51.9 Heart disease, unspecified; E11.9 Type 2 diabetes mellitus without complications; Z59.00 Homelessness unspecified; Z56.0 Unemployment, unspecified; Z88.8 Allergy status to other drugs, medicaments and biological substances; Z79.899 Other long term (current) drug therapy; Z88.1 Allergy status to other antibiotic agents
CPT/HCPCS: 99283

== ENCOUNTER 2022-09-15 13:38 | Emergency (ER) | payer MEDICARE, MEDICAID ==
[~2022-09-15] VITALS: Ht 175.3 cm; Wt 54.0 kg
[~2022-09-15 13:38] MED LIST changes: +MELO-102 PO
[2022-09-15 14:04] VITALS: BP 117/66
[2022-09-15] MEDS ORDERED: PERM60CR19 TOP (14:22)
[2022-09-15] MEDS ORDERED: hydrOXYzine 25 MG tablet PO ONE (14:25)
[2022-09-15] MEDS ORDERED: Permethrin Cream 60gm TP ONE (14:25)
== END 2022-09-15 15:12 | disposition home or self-care (01) ==
LOC: ER 13:39
DX: L29.9 Pruritus, unspecified (principal); L25.9 Unspecified contact dermatitis, unspecified cause; J44.9 Chronic obstructive pulmonary disease, unspecified; E11.9 Type 2 diabetes mellitus without complications; M19.90 Unspecified osteoarthritis, unspecified site; F31.9 Bipolar disorder, unspecified; Z88.8 Allergy status to other drugs, medicaments and biological substances; Z91.09 Other allergy status, other than to drugs and biological substances; Z59.00 Homelessness unspecified; Z56.0 Unemployment, unspecified
CPT/HCPCS: 99283; Q0177

== ENCOUNTER 2022-12-06 15:28 | Emergency (ER) | payer MEDICARE, MEDICAID ==
[~2022-12-06] VITALS: Ht 175.3 cm; Wt 54.5 kg
[2022-12-06 16:11] VITALS: BP 132/84
[2022-12-06] MEDS ORDERED: neomy sulf/polymyx B sulf/HC 7.5ml ophthalmic suspension EACHEYE ONE (18:00)
== END 2022-12-06 18:24 | disposition home or self-care (01) ==
LOC: ER 15:29
DX: H10.533 Contact blepharoconjunctivitis, bilateral (principal); H10.9 Unspecified conjunctivitis; J44.9 Chronic obstructive pulmonary disease, unspecified; E11.9 Type 2 diabetes mellitus without complications; M19.90 Unspecified osteoarthritis, unspecified site; F31.9 Bipolar disorder, unspecified; Z88.8 Allergy status to other drugs, medicaments and biological substances; Z91.09 Other allergy status, other than to drugs and biological substances; Z59.00 Homelessness unspecified; Z56.0 Unemployment, unspecified
CPT/HCPCS: 99282

== ENCOUNTER 2023-12-23 19:25 | Emergency (ER) | payer MEDICARE, MEDICAID ==
[~2023-12-23] VITALS: Ht 175.3 cm; Wt 60.4 kg
[2023-12-23 20:26] LABS: BASOPHILS # (AUTO) 0.1 X10'3 (0-0.2); BASOPHILS % (AUTO) 0.6 % (0-1); EOSINOPHILS # (AUTO) 0.4 X10'3 (0-0.9); EOSINOPHILS % (AUTO) 3.3 % (0-6); HEMATOCRIT 48.6 % (42.0-52.0); HEMOGLOBIN 16.3 g/dl (14.0-17.9); LYMPHOCYTES # (AUTO) 2.9 X10'3 (1.1-4.8); LYMPHOCYTES % (AUTO) 25.5 % (21-51); MEAN CORPUSCULAR HEMOGLOBIN 29.7 PG (27.0-31.0); MEAN CORPUSCULAR HGB CONC 33.6 g/dL (33.0-36.5); MEAN CORPUSCULAR VOLUME 88.4 FL (78-98); MEAN PLATELET VOLUME 6.9 FL (7.4-10.4); MONOCYTES # (AUTO) 0.9 X10'3 (0-0.9); MONOCYTES % (AUTO) 8.5 % (2-12); NEUTROPHILS # (AUTO) 6.9 X10'3 (1.8-7.7); NEUTROPHILS % (AUTO) 62.1 % (42-75); PLATELET COUNT 285 X10'3 (140-440); RED BLOOD COUNT 5.49 X10'6 (4.70-6.10); RED CELL DISTRIBUTION WIDTH 13.2 % (11.5-14.5); WHITE BLOOD COUNT 11.2 X10'3 (4.5-11.0)
[2023-12-23 20:37] LABS: ALANINE AMINOTRANSFERASE 35 U/L (12-78); ALBUMIN 3.6 G/DL (3.4-5.0); ALBUMIN/GLOBULIN RATIO 0.9 (1.1-1.5); ALKALINE PHOSPHATASE 77 IU/L (46-116); ANION GAP 6 (8-16); ASPARTATE AMINO TRANSFERASE 21 U/L (10-37); BILIRUBIN,TOTAL 0.7 MG/DL (0.1-1.0); BLOOD UREA NITROGEN 24 MG/DL (7-18); BUN/CREATININE RATIO 18.8 (10.0-20.0); CALCIUM 9.4 MG/DL (8.5-10.1); CHLORIDE 103 MMOL/L (99-107); CREATININE 1.28 MG/DL (0.60-1.10); GLUCOSE 104 MG/DL (70-104); POTASSIUM 4.9 MMOL/L (3.5-5.1); SODIUM 141 MMOL/L (135-145); TOTAL CARBON DIOXIDE 32.1 MMOL/L (24-32); TOTAL PROTEIN 7.5 G/DL (6.4-8.2); eCRCL 46 ML/MIN; eGFR 56 ML/MIN
[2023-12-23] MEDS: LIDOcaine 5% patch TP STA (20:53)
[2023-12-23] MEDS: ibuprofen tablet 400 MG TABLET PO ONE (20:54)
[2023-12-23 22:37] VITALS: BP 129/71; PULSE 55; RESP 17; TEMP 97.6; O2SAT 93
== END 2023-12-23 22:56 | disposition home or self-care (01) ==
LOC: ER 19:26
DX: G44.89 Other headache syndrome (principal); J42 Unspecified chronic bronchitis; M62.838 Other muscle spasm
CPT/HCPCS: 36415; 70450; 71046; 80053; 84484; 85025; 99284

== ENCOUNTER 2024-05-27 21:19 | Emergency (ER) | payer MEDICARE, MEDICAID ==
[~2024-05-27] VITALS: Ht 175.3 cm; Wt 64.5 kg
[2024-05-27 21:27] VITALS: BP 117/83; PULSE 78; RESP 16; O2SAT 98
[2024-05-27] MEDS ORDERED: CEPH-585 PO (22:45)
[2024-05-27] MEDS: bacitracin 15gm ointment TP ONE (23:14)
[2024-05-27] MEDS: cephalexin 250mg capsule PO STA (23:14)
[2024-05-27 23:16] VITALS: TEMP 98.1
== END 2024-05-27 23:20 | disposition home or self-care (01) ==
LOC: ER 21:19
DX: L03.113 Cellulitis of right upper limb (principal); B95.8 Unspecified staphylococcus as the cause of diseases classified elsewhere; I25.2 Old myocardial infarction; J44.9 Chronic obstructive pulmonary disease, unspecified; E11.36 Type 2 diabetes mellitus with diabetic cataract; F20.9 Schizophrenia, unspecified; F31.9 Bipolar disorder, unspecified; M19.90 Unspecified osteoarthritis, unspecified site; F17.210 Nicotine dependence, cigarettes, uncomplicated; Z98.890 Other specified postprocedural states; Z59.00 Homelessness unspecified; Z56.0 Unemployment, unspecified; Z72.89 Other problems related to lifestyle; Z60.2 Problems related to living alone; Z90.89 Acquired absence of other organs; Z88.8 Allergy status to other drugs, medicaments and biological substances; Z79.899 Other long term (current) drug therapy
CPT/HCPCS: 99283

== ENCOUNTER 2024-11-09 12:46 | Emergency (ER) | payer MEDICARE, MEDICAID ==
[~2024-11-09] VITALS: Ht 175.3 cm; Wt 59.2 kg
[2024-11-09 13:02] VITALS: BP 126/78; PULSE 67; RESP 16; TEMP 99; O2SAT 98
--- NOTE | 2024-11-09 16:14 | Physician Documentation ---
History of Present Illness ~ Chief Complaint: Eye Pain Stated Complaint: EYE INFECTION Time Seen by MD: 13:58 Primary Medical Doctor: NONE HPI The patient is seen today with complaints of bilateral eye discomfort and burning and discharge. Patient denies any changes in vision or hearing. Patient states symptoms started a few days ago. Patient also states he has a few skin lesions in question that are bothering him, one on his left upper arm and one on the back of his neck. Patient has no new or other concern or complaint at this time. Patient denies any chest pain or shortness of breath or abdominal pain or nausea, vomiting, diarrhea. Patient has no other concern or complaint at this time. Medication Reconciliation Allergies: Coded Allergies: wool (Verified Allergy, Intermediate, skin breaks out, 12/06/22) Thioridazine HCl (Unverified Allergy, Unknown, 12/06/22) chlorpromazine HCl (Unverified Allergy, Unknown, 12/06/22) fluphenazine HCl (Unverified Allergy, Unknown, 12/06/22) fluphenazine enanthate (Unverified Allergy, Unknown, 12/06/22) Scheduled Albuterol Sulfate (Proventil Hfa), 2 PUFFS INH Q6H Albuterol Sulfate (Proventil Hfa), 2 PUFFS INH Q6H Bacitracin (Bacitracin), 1 APPLIC LEFTEYE Q8H Camphor (Benadryl Anti-Itch), 85 GM TP DAILY Diphenhydramine Hcl (Benadryl), 25 MG PO TID Diphenhydramine Hcl (Benadryl), 1 CAP PO Q12H Diphenhydramine Hcl (Benadryl), 1 CAP PO Q12H Docusate Sodium (Docusate Sodium), 1 CAP PO Q12H Hydrocortisone (hydrocortisone 1% cream), 1 APPLIC TOP Q12H Meloxicam (Meloxicam), 1 TAB PO DAILY Scheduled PRN Diphenhydramine Hcl (Benadryl), 1 CAP PO Q8H PRN for itching Ibuprofen (Ibuprofen), 1 TAB PO Q6H PRN for pain albuterol inhaler (Pro-Air Inhaler), 2 PUFFS PO Q4H PRN for shortness of breath, (Reported) Miscellaneous Medications [Artane], (Reported) [Geodon], (Reported) Past Medical History Past Medical History: Cataracts, Myocardial Infarction, Bronchitis, COPD, Emphysema, Peptic Ulcer Disease, Diabetes, Arthritis, Extremity Fracture, Osteoarthritis, Eczema, MRSA Abscess, Bipolar, Schizophrenia Past Surgical History: orthopedic surgeries, tonsillectomy Alcohol Use: None Drug Use: none Lives with: Alone Lives In: Homeless Occupation: unemployed, disabled Review of Systems Constitutional: Denies: chills, fever, weakness Eyes: Denies: pain, blurred vision ENT: Denies: ear pain, nose pain, throat pain, mouth pain Respiratory: Denies: cough, shortness of breath Cardiovascular: Denies: chest pain, palpitations Gastrointestinal: Denies: abdominal pain, nausea, vomiting Genitourinary: Denies: burning, dysuria Male Genitalia: Denies: penile discharge, testicular pain Neurological: Denies: headache, dizziness Musculoskeletal: Denies: pain, swelling Integumentary: Denies: rash, lesions Allergic/Immunologic: Denies: hives, itching Hematologic/Lymphatic: Denies: no symptoms reported Psychiatric: Denies: depression, anxiety Physical Exam Vital Signs: Temperature: 99.0, Heart Rate: 67, Respiratory Rate: 16, BP: 126/78, Pulse Oximetry: 98, Weight: 59.200 Oxygen Flow Rate: 0 Physical Exam General: Awake and Alert, no acute distress. HEENT: Patient on exam has mild erythema and irritation surrounding his eyes and eyelids bilaterally consistent with vigorous rubbing of his eyes. Patient has some mild purulent discharge from both eyes. PERRLA, EOM intact bilaterally, injected sclera bilaterally. Resp: Unlabored. Lungs clear to auscultation bilaterally. Heart: Regular Rate and rhythm, normal S1 and S2 without murmur, rub or gallop. Abdomen: Soft and non tender no organomegaly Extremities: No cyanosis,clubbing or edema. Skin: Patient on exam has skin lesion on left upper arm about 5 mm in diameter and a similar one on the back of his neck consistent with impetigo. Progress Results/Orders Results/Orders Vital Signs 11/09/24 13:02 Temp 99.0 Pulse 67 Resp 16 B/P (MAP) 126/78 Pulse Ox 98 O2 Flow Rate 0 Medical Decision Making Findings The patient is seen today with complaints of bilateral eye discomfort and burning and discharge. Patient denies any changes in vision or hearing. Patient states symptoms started a few days ago. Patient also states he has a few skin lesions in question that are bothering him, one on his left upper arm and one on the back of his neck. Patient has no new or other concern or complaint at this time. Patient denies any chest pain or shortness of breath or abdominal pain or nausea, vomiting, diarrhea. Patient has no other concern or complaint at this time. Patient will be given antibacterial and steroid eyedrops to be used as directed as well as mupirocin ointment for the skin lesions on his left arm and back of his neck to be used as directed and applied topically. Patient will return to ED with any worsening, concerning or changing symptoms. Departure Disposition: HOME / SELF CARE / HOMELESS Impression: Primary Impression: Conjunctivitis Qualified Codes: H10.33 - Unspecified acute conjunctivitis, bilateral Additional Impression: Impetigo Condition: Improved Discharge Instructions: Bacterial Conjunctivitis, Adult, [id number] Referrals: NO PRIMARY CARE PROVIDER (PCP) Prescriptions Mupirocin* (Bactroban*) 22 Gm Tube 1 APPLIC TOP Q8H for 7 Days, #22 GM apply to affected area(s) Prov: HANNAH GEORGE 11/09/24 Signature Scribe Signature: No scribe Attestation: No scribe HANNAH GEORGE November 09, 2024 16:14
[2024-11-09] MEDS ORDERED: MUPI22OI30 TOP (16:18)
[2024-11-09] MEDS: neomy sulf/polymyx B sulf/HC 7.5ml ophthalmic suspension EACHEYE STA (17:06)
== END 2024-11-09 17:09 | disposition home or self-care (01) ==
LOC: ER 12:47
DX: H10.9 Unspecified conjunctivitis (principal); L01.00 Impetigo, unspecified; E11.9 Type 2 diabetes mellitus without complications; F20.9 Schizophrenia, unspecified; F31.9 Bipolar disorder, unspecified; J43.9 Emphysema, unspecified; M19.90 Unspecified osteoarthritis, unspecified site; Z88.8 Allergy status to other drugs, medicaments and biological substances; Z90.89 Acquired absence of other organs
CPT/HCPCS: 99283

== ENCOUNTER 2024-11-23 20:21 | Emergency (ER) | payer MEDICARE, MEDICAID ==
[~2024-11-23] VITALS: Ht 175.3 cm; Wt 59.0 kg
[2024-11-23 20:41] VITALS: BP 135/83; PULSE 79; O2SAT 99
[2024-11-23 22:30] VITALS: RESP 20
--- NOTE | 2024-11-23 23:35 | Physician Documentation ---
History of Present Illness ~ Chief Complaint: Eye Pain Stated Complaint: FACIAL IRRITATION Time Seen by MD: 22:51 Primary Medical Doctor: NONE Source: old records Mode of Arrival: POV HPI This 69-year-old male presents with one-week of bilateral eye discomfort in discharge, patient describes sensation as burning and reports purulent discharge from in his eyes daily. Patient reports that when he moves his eyes he feels like there is a bumps in his eyes. Patient additionally reports skin irritation to bilateral cheeks in lower orbits that has been present for months though much worse since his eye complaint started as he is rubbing his eyes frequently. Patient was seen approximately one-week ago for the same complaint in treated with eyedrops though patient reports they did not work. Medication Reconciliation Allergies: Coded Allergies: wool (Verified Allergy, Intermediate, skin breaks out, 11/23/24) Thioridazine HCl (Unverified Allergy, Unknown, 11/23/24) chlorpromazine HCl (Unverified Allergy, Unknown, 11/23/24) fluphenazine HCl (Unverified Allergy, Unknown, 11/23/24) fluphenazine enanthate (Unverified Allergy, Unknown, 11/23/24) Scheduled Albuterol Sulfate (Proventil Hfa), 2 PUFFS INH Q6H Albuterol Sulfate (Proventil Hfa), 2 PUFFS INH Q6H Bacitracin (Bacitracin), 1 APPLIC LEFTEYE Q8H Camphor (Benadryl Anti-Itch), 85 GM TP DAILY Cephalexin*Monohydrate* (Keflex*), 1 CAP PO QID Ciprofloxacin Hcl Ophth* (Ciloxan 0.35 Ophth Drops*), 2 DROP EACHEYE QID Diphenhydramine Hcl (Benadryl), 25 MG PO TID Diphenhydramine Hcl (Benadryl), 1 CAP PO Q12H Diphenhydramine Hcl (Benadryl), 1 CAP PO Q12H Docusate Sodium (Docusate Sodium), 1 CAP PO Q12H Hydrocortisone (hydrocortisone 1% cream), 1 APPLIC TOP Q12H Meloxicam (Meloxicam), 1 TAB PO DAILY Scheduled PRN Diphenhydramine Hcl (Benadryl), 1 CAP PO Q8H PRN for itching Ibuprofen (Ibuprofen), 1 TAB PO Q6H PRN for pain albuterol inhaler (Pro-Air Inhaler), 2 PUFFS PO Q4H PRN for shortness of breath, (Reported) Miscellaneous Medications [Artane], (Reported) [Geodon], (Reported) Discontinued Medications Mupirocin* (Bactroban*), 1 APPLIC TOP Q8H Discontinued Reason: Auto Discontinued Past Medical History Past Medical History: Cataracts, Myocardial Infarction, Bronchitis, COPD, Emphysema, Peptic Ulcer Disease, Diabetes, Arthritis, Extremity Fracture, Osteoarthritis, Eczema, MRSA Abscess, Bipolar, Schizophrenia Past Surgical History: orthopedic surgeries, tonsillectomy Alcohol Use: None Drug Use: none Lives with: Alone Lives In: Homeless Occupation: unemployed, disabled Review of Systems ROS Bilateral eye discomfort as stated above in the HPI, otherwise all systems are reviewed and negative. Physical Exam Vital Signs: Temperature: 98.1, Source: Oral, Heart Rate: 79, Respiratory Rate: 20, BP: 135/83, Pulse Oximetry: 99, Weight: 59.000 Oxygen Flow Rate: 0 Physical Exam VITALS: Reviewed and as above. GENERAL: Alert, nontoxic appearing, no apparent distress. HEENT: Conjunctiva mildly injected, eyelids erythematous though not significantly swollen, PERRLA, EOMI. Fluorescein exam did not demonstrate evidence of Eloise sign, dendritic lesions, or focal fluorescein uptake. RESPIRATORY: No increased work of breathing, no respiratory distress, speaking in full clear sentences SKIN: Skin of bilateral cheeks and lower orbits erythematous, excoriated, and flaky without induration, mildly tender to palpation, borders of erythema are sharply demarcated Progress Results/Orders Results/Orders Orders - DOUGLAS MULTANI Eye Procedure (11/23/24 ) Completed Orders - DOUGLAS MULTANI Ciprofloxacin Ophth Drops (Ciloxan 0.3% (11/23/24 23:30) Proparacaine Ophth Solution (Alcaine Oph (11/23/24 23:40) Cephalexin Capsule (Keflex Capsule) (11/24/24 00:10) Acetaminophen 325mg Tablet (Tylenol Tabl (11/24/24 00:20) Medications Received in ER Medications (Trade) Dose Ordered Sig/Xin Route PRN Reason Start Time Stop Time Status Last Admin Dose Admin (Keflex capsule) 500 mg ONCE ONCE PO 11/24/24 00:10 11/24/24 00:11 DC 11/24/24 00:40 500 MG (Tylenol tablet) 650 mg ONCE ONCE PO 11/24/24 00:20 11/24/24 00:21 DC 11/24/24 00:41 650 MG Vital Signs 11/23/24 11/23/24 11/24/24 20:41 22:30 00:33 Temp 98.1 98.1 Pulse 79 Resp 16 20 B/P (MAP) 135/83 Pulse Ox 99 O2 Flow Rate 0 Medical Decision Making Additional info obtained from: old records Findings This 69-year-old male presented back to the emergency department with a continued burning pain to bilateral eyes with episodes of purulent drainage from eyes and erythema to his bilateral cheeks, symptoms and physical exam consistent with bacterial conjunctivitis. Fluorescein exam performed due to patient's description of symptoms consistent with foreign body sensation in addition to symptoms of conjunctivitis, fluorescein exam was reassuring as there was no dendritic lesions or focal fluorescein uptake to suggest corneal abrasion or corneal ulcer. Exam of erythema to face is consistent with erysipelas as it has sharply demarcated borders and is without significant induration. Remainder of physical exam was benign with stable vital signs. It is reassuring patient is reporting no vision changes and there is no evidence of periorbital or orbital cellulitis. Patient is appropriate for outpatient follow up. Patient discharged with prescriptions for ophthalmology and oral antibiotics. Patient provided careful return to care precautions which he verbalized understanding of. Eye Diff. Dx: Considerations: Include: [place], Conjuctivits-allergic, Conjuctivitis-bacterial, Conjuctivits-chlamydial, Conjuctivitis-viral, Corneal abrasion, Corneal laceration, Corneal ulceration, Foreign body-conjuctiva, Foreign body-corneal, Glaucoma, Globe rupture, Iritis, Orbital cellulitis, Periobital cellulitis, Subconjunctival hem, Uveitis Departure Disposition: 01 HOME / SELF CARE / HOMELESS Impression: Primary Impression: Conjunctivitis Qualified Codes: H10.33 - Unspecified acute conjunctivitis, bilateral Additional Impression: Erysipelas of face Condition: Improved Discharge Instructions: Erysipelas Additional Instructions: Please use the eyedrops as prescribed, please take the antibiotics as prescribed. Keep the area clean and dry, do not reuse washcloths and do not share washcloths or eyewear. If you wear contacts please stop wearing them until after treatment is complete. Please follow up with your primary care provider in the next few days. Please return to the emergency department for any new or worsening concerning symptoms. Referrals: NO PRIMARY CARE PROVIDER (PCP) Prescriptions Cephalexin*Monohydrate* (Keflex*) 500 Mg Capsule 1 CAP PO QID for 7 Days, #28 CAP Prov: DOUGLAS MULTANI 11/24/24 Ciprofloxacin Hcl Ophth* (Ciloxan 0.35 Ophth Drops*) 2.5 Ml Bottle 2 DROP EACHEYE QID for 7 Days, #1 EACH For the 1st two days use two drops in each eye every 2 hours while awake. For the remaining five days use two drops in each eye 4 times a day Prov: DOUGLAS MULTANI 11/24/24 Education Educated: Patient Educated regarding: diagnosis, treatment, prognosis Signature Scribe Signature: No scribe Attestation: The note accurately reflects work and decisions made by me.GIUSEPPE Tejeda 11/24/24 01:40 DOUGLAS MULTANI Nov 23, 2024 23:35
[2024-11-23] MEDS: proparacaine 0.5% ophthalmic drops 15ml EACHEYE ONE (23:44)
[2024-11-23] MEDS: ciprofloxacin 0.3% 2.5ml ophthalmic solution EACHEYE ONE (23:44)
[2024-11-24] MEDS ORDERED: CIPR2.5D21 EACHEYE (00:26)
[2024-11-24] MEDS ORDERED: CEPH-585 PO (00:28)
[2024-11-24 00:33] VITALS: TEMP 98.1
[2024-11-24] MEDS: cephalexin 250mg capsule PO ONE (00:40)
[2024-11-24] MEDS: acetaminophen 325mg tablet PO ONE (00:41)
== END 2024-11-24 00:42 | disposition home or self-care (01) ==
LOC: ER 20:21
DX: H10.33 Unspecified acute conjunctivitis, bilateral (principal); A46 Erysipelas; E11.9 Type 2 diabetes mellitus without complications; F20.9 Schizophrenia, unspecified; F31.9 Bipolar disorder, unspecified; J43.9 Emphysema, unspecified; M19.90 Unspecified osteoarthritis, unspecified site; Z88.8 Allergy status to other drugs, medicaments and biological substances; Z90.89 Acquired absence of other organs
CPT/HCPCS: 99283